=== PATIENT | female | born 1945 | race Caucasian/White ===

== ENCOUNTER → 2018-08-02 | Outpatient (CLI) | payer MEDICARE ==
--- NOTE | 2018-08-02 15:50 | XR ---
Bilateral knees HISTORY: Knee pain, osteoarthritis 3 views of each knee are submitted on a total 5 images There is chondrocalcinosis present, loss of joint space, marginal spurring present at the patellofemo ral joint on the right. Suprapatellar increased density compatible joint effusion. Marginal spurring present with joint space loss greater in the lateral compartment than medial compartment. Suspect a v arus deformity. Left knee shows post arthroplasty change. Bone mineralization is reduced. Alignment i s anatomic. Patella on the left appears high riding. Femoral stem from hip prosthesis noted on the le ft. 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 High riding patella, correlate for possible patellar tendon disruption. Postop change left knee.
== END | disposition home or self-care (01) ==
LOC: RADXRMAIN 12:01
PROVIDERS: ATTEND Internal Medicine
DX: M25.561 Pain in right knee (principal); M25.562 Pain in left knee; Z98.890 Other specified postprocedural states